=== PATIENT | female | born 1970 | race Caucasian/White ===

== ENCOUNTER 2017-09-29 07:13 | Day surgery (SDC) | payer OTHER ==
[2017-09-29] MEDS ORDERED: CYANOCOBALAMIN (VITAMIN B-12) 1000 MCG/1 ML VIAL IM ONE (10:00)
[2017-09-29] MEDS ORDERED: IRON SUCROSE INJECTION 200 MG in SODIUM CHLORIDE 100 ML IVPB ONE (10:00)
[2017-09-29 16:36] VITALS: TEMP 98.1
[2017-09-29 17:34] VITALS: BP 135/90; PULSE 85
== END 2017-09-29 17:00 | disposition home or self-care (01) ==
LOC: JONCNONCHE 07:13 → J7W 16:08 → JONCNONCHE 17:00
PROVIDERS: ATTEND Internal Medicine Hematology & Oncology
PROC: 3E033GC Introduction of Other Therapeutic Substance into Peripheral Vein, Percutaneous Approach (ICD-10-PCS; principal; 2017-09-29)
PROC: 3E013GC Introduction of Other Therapeutic Substance into Subcutaneous Tissue, Percutaneous Approach (ICD-10-PCS; 2017-09-29)
DX: D50.9 Iron deficiency anemia, unspecified (principal); K90.9 Intestinal malabsorption, unspecified; E53.8 Deficiency of other specified B group vitamins
CPT/HCPCS: 96365; 96372; 96417; J1756

== ENCOUNTER 2017-10-13 07:30 | Day surgery (SDC) | payer OTHER ==
[2017-10-13] MEDS ORDERED: IRON SUCROSE INJECTION 200 MG in SODIUM CHLORIDE 100 ML IVPB ONE (13:00)
[2017-10-13] MEDS ORDERED: CYANOCOBALAMIN (VITAMIN B-12) 1000 MCG/1 ML VIAL IM ONE (13:00)
[2017-10-13 16:38] VITALS: TEMP 98.8
[2017-10-13 17:46] VITALS: BP 123/72; PULSE 68
== END 2017-10-13 17:15 | disposition home or self-care (01) ==
LOC: JONCNONCHE 07:30 → J7W 16:07 → JONCNONCHE 17:15
PROVIDERS: ATTEND Internal Medicine Hematology & Oncology
PROC: 3E033GC Introduction of Other Therapeutic Substance into Peripheral Vein, Percutaneous Approach (ICD-10-PCS; principal; 2017-10-13)
PROC: 3E013GC Introduction of Other Therapeutic Substance into Subcutaneous Tissue, Percutaneous Approach (ICD-10-PCS; 2017-10-13)
DX: D50.9 Iron deficiency anemia, unspecified (principal)
CPT/HCPCS: 96365; 96372; 96417; J1756

== ENCOUNTER 2017-10-21 07:32 | Day surgery (SDC) | payer OTHER ==
[2017-10-21] MEDS ORDERED: IRON SUCROSE INJECTION 200 MG in SODIUM CHLORIDE 100 ML IVPB ONE (13:00)
[2017-10-21 18:30] VITALS: BP 116/67; PULSE 70; TEMP 98.3
== END 2017-10-21 18:25 | disposition home or self-care (01) ==
LOC: JONCNONCHE 07:32 → J7W 16:01 → JONCNONCHE 18:25
PROVIDERS: ATTEND Internal Medicine Hematology & Oncology
PROC: 3E033GC Introduction of Other Therapeutic Substance into Peripheral Vein, Percutaneous Approach (ICD-10-PCS; principal; 2017-10-21)
DX: D50.9 Iron deficiency anemia, unspecified (principal)
CPT/HCPCS: 96365; 96417; J1756

== ENCOUNTER 2017-10-30 14:00 | Day surgery (SDC) | payer OTHER ==
[2017-10-30] MEDS ORDERED: IRON SUCROSE INJECTION 200 MG in SODIUM CHLORIDE 100 ML IVPB ONE (15:30)
[2017-10-30 16:19] VITALS: TEMP 97.9
[2017-10-30 17:25] VITALS: BP 124/75; PULSE 66
== END 2017-10-30 16:55 | disposition home or self-care (01) ==
LOC: JONCNONCHE 14:00 → J7W 14:00 → JONCNONCHE 16:55
PROVIDERS: ATTEND Internal Medicine Hematology & Oncology
PROC: 3E033GC Introduction of Other Therapeutic Substance into Peripheral Vein, Percutaneous Approach (ICD-10-PCS; principal; 2017-10-30)
DX: D50.9 Iron deficiency anemia, unspecified (principal)
CPT/HCPCS: 96365; J1756

== ENCOUNTER 2019-01-20 05:35 | Day surgery (SDC) | payer OTHER ==
[2019-01-20] MEDS ORDERED: IRON SUCROSE INJECTION 200 MG in SODIUM CHLORIDE 100 ML IVPB ONE (09:00)
[2019-01-20 15:54] VITALS: BP 132/64; PULSE 80; TEMP 97.9
== END 2019-01-20 09:20 | disposition home or self-care (01) ==
LOC: JONCCHEMO 05:35 → J7W 08:33 → JONCCHEMO 09:20
PROVIDERS: ATTEND Internal Medicine Hematology & Oncology
PROC: 3E033GC Introduction of Other Therapeutic Substance into Peripheral Vein, Percutaneous Approach (ICD-10-PCS; principal; 2019-01-20)
DX: D50.9 Iron deficiency anemia, unspecified (principal)
CPT/HCPCS: 96365; J1756

== ENCOUNTER 2019-01-27 06:25 | Day surgery (SDC) | payer OTHER ==
[2019-01-27 09:44] VITALS: TEMP 97.8
[2019-01-27 09:45] VITALS: BP 105/73; PULSE 67
[2019-01-27] MEDS ORDERED: IRON SUCROSE INJECTION 200 MG in SODIUM CHLORIDE 100 ML IVPB ONE (10:00)
== END 2019-01-27 09:00 | disposition home or self-care (01) ==
LOC: JONCCHEMO 06:25 → J7W 08:10 → JONCCHEMO 09:00
PROVIDERS: ATTEND Internal Medicine Hematology & Oncology
PROC: 3E033GC Introduction of Other Therapeutic Substance into Peripheral Vein, Percutaneous Approach (ICD-10-PCS; principal; 2019-01-27)
DX: D50.9 Iron deficiency anemia, unspecified (principal)
CPT/HCPCS: 96365; J1756

== ENCOUNTER 2019-02-03 07:18 | Day surgery (SDC) | payer OTHER ==
[2019-02-03] MEDS ORDERED: IRON SUCROSE INJECTION 200 MG in SODIUM CHLORIDE 100 ML IVPB ONE (10:00)
[2019-02-03 14:16] VITALS: BP 120/64; PULSE 70; TEMP 97.5
== END 2019-02-03 09:30 | disposition home or self-care (01) ==
LOC: JONCNONCHE 07:18 → J7W 08:42 → JONCNONCHE 09:30
PROVIDERS: ATTEND Internal Medicine Hematology & Oncology
PROC: 3E033GC Introduction of Other Therapeutic Substance into Peripheral Vein, Percutaneous Approach (ICD-10-PCS; principal; 2019-02-03)
DX: D50.9 Iron deficiency anemia, unspecified (principal)
CPT/HCPCS: 96365; J1756

== ENCOUNTER 2019-02-10 07:03 | Day surgery (SDC) | payer OTHER ==
[2019-02-10] MEDS ORDERED: IRON SUCROSE INJECTION 200 MG in SODIUM CHLORIDE 100 ML IVPB ONE (09:00)
[2019-02-10 10:11] VITALS: TEMP 98
[2019-02-10 10:25] VITALS: BP 92/59; PULSE 66
== END 2019-02-10 09:05 | disposition home or self-care (01) ==
LOC: JONCNONCHE 07:03 → JONCCHEMO 07:03 → J7W 08:08 → JONCNONCHE 09:05
PROVIDERS: ATTEND Internal Medicine Hematology & Oncology
PROC: 3E033GC Introduction of Other Therapeutic Substance into Peripheral Vein, Percutaneous Approach (ICD-10-PCS; principal; 2019-02-10)
DX: D50.9 Iron deficiency anemia, unspecified (principal)
CPT/HCPCS: 96365; J1756

== ENCOUNTER 2019-08-01 13:31 | Emergency (ER) | payer OTHER ==
[2019-08-01 13:51] VITALS: BP 130/86; PULSE 65; TEMP 97.8; BMI 40.3
[2019-08-01] MEDS ORDERED: LIDOCAINE 5% TOPICAL PATCH TP ONE (14:20)
--- NOTE | 2019-08-01 14:25 | PDOC ---
Documentation entered by Deisi Rodriges SCRIBE, acting as scribe for Ligia Jarrett MD. Ligia Jarrett MD: This documentation has been prepared by the Antelmo montes Xhesika, SCRIBE, under my direction and personally reviewed by me in its entirety. I confirm that the documentation accurately reflects all work, treatment, procedures, and medical decision making performed by me. History of Present Illness - General Chief Complaint: Back Pain Stated Complaint: BACK PAIN Time Seen by Provider: 08/01/19 13:56 History Source: Patient Exam Limitations: No Limitations - History of Present Illness Initial Comments: 08/01/19 14:31 The patient is a 48 year old female with a significant past medical history of sciatica and seizure disorder who presents to the ED with lower and mid back pain, b/l shoulder soreness and neck soreness after straining to help a bariatric patient on the weight scale. Patient is an employee (RN) here at [employer], she was trying to weigh a bariatric patient that was going into surgery, they got her to stand, however,that patient eased down to the floor. Pt notes she fell over her and hit her back against the scale. Patient denies any other trauma, hitting her head or LOC. Patient notes her pain/ soreness is alleviated by standing and being mobile and worsened when sitting still. Patient notes she took 800mg Ibuprofen with mild relief of symptoms. Denies chest pain, SOB, palpitation, dizziness, weakness, N, V, abdominal pain, bladder and bowel problems, leg tingling/swelling Allergies: codeine Past Medical History: as documented in EMR/HPI Social history: Lives with family. No tobacco, ETOH or drug use. Surgical history: Cholecystectomy, Gastric bypass Meds: as documented in EMR Family history: noncontributory 08/01/19 15:11 Past History - Past Medical History Allergies/Adverse Reactions: Allergies Allergy/AdvReac Type Severity Reaction Status Date / Time codeine AdvReac Severe Difficulty Verified 08/01/19 13:32 Breathing Home Medications: Ambulatory Orders Carbamazepine 600 mg PO BID 08/01/19 Cyclobenzaprine HCl [Flexeril 10 mg] 10 mg PO TID PRN #12 tablet 08/01/19 Ibuprofen [Motrin -] 800 mg PO ONCE PRN 08/01/19 Topiramate 50 mg PO BID 08/01/19 COPD: No CHF: No Seizures: Yes Other medical history: MIGRAINE - Surgical History Cholecystectomy: Yes - Suicide/Smoking/Psychosocial Hx Smoking History: Never smoked Have you smoked in the past 12 months: No Information on smoking cessation initiated: No Review of Systems - Review of Systems Able to Perform ROS?: Yes Comments:: 08/01/19 14:32 Review of Systems (Shortened) - MSK/Level 4s Constitutional: no fevers or chills. Abdomen: no abdominal pain Genitorurinary: no urinary retention or incontinence, no dysuria, urgency or frequency. no hematuria MUSCULOSKELETAL: No joint pain and swelling. No arthralgias. (+) b/l shoulder soreness. (+) neck soreness. Back: (+)back pain SKIN: no redness or skin changes, no discharge, no rash. No wounds. Hematologic: no easy bruising/bleeding. NEUROLOGIC: No weakness, numbness or tingling. Allergic/Immunologic: codeine allergy All other systems reviewed and negative, or as documented in HPI. 08/01/19 15:13 *Physical Exam - Vital Signs Last Vital Signs Temp Pulse Resp BP Pulse Ox 97.8 F 65 20 130/86 97 08/01/19 13:31 08/01/19 13:31 08/01/19 13:31 08/01/19 13:31 08/01/19 13:31 - Physical Exam Comments: 08/01/19 14:32 General: NAD, well appearing, GCS 15 Abdomen: soft, no tenderness, nondistended Vascular: 2+ DP pulses symmetric and equal. Back: no midline tenderness, no stepoffs, FROM. (+) paravertebral lower lumbar tenderness. (+) upper thoracic tenderness.(+) b/l trapezius tenderness and lateral cervical tenderness. MSK: soft compartments, Cap refill <2 sec. Proximal and distal strength 5/5, saddle stitcher strength 5/5 - equal and symmetric. Plantar flexion and dorsiflexion 5/5. FROM. Sensation grossly intact to light touch. Neuro: alert, no focal neurologic deficits, ambulatory, gait stable Skin: color normal color, warm and well perfused. Cap refill <2 sec. no ecchymosis, no wounds. 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 ambulatory here, feels well and comfortable with plan supportive care,a void heavy lifting or further trauma pmd and ortho referral, return precautions pt made aware of impression and plan, discharge stable condition 08/01/19 15:14 *DC/Admit/Observation/Transfer Diagnosis at time of Disposition: Neck muscle strain Qualifiers: Encounter type: initial encounter Qualified Code(s): S16.1XXA - Strain of muscle, fascia and tendon at neck level, initial encounter Lumbar back sprain Qualifiers: Encounter type: initial encounter Qualified Code(s): S33.5XXA - Sprain of ligaments of lumbar spine, initial encounter - Discharge Dispostion Disposition: HOME Condition at time of disposition: Improved Decision to Admit order: No - Prescriptions Prescriptions: Cyclobenzaprine HCl [Flexeril 10 mg] 10 mg PO TID PRN #12 tablet PRN Reason: Muscle Spasms - Referrals Referrals: [facility] [place] [Provider Group] [facility] [Provider Group] Bassem Goodwin DO [Staff Physician] - Luis Lindsey DO [Staff Physician] - - Patient Instructions Printed Discharge Instructions: DI for Low Back Pain, DI for Cervical Muscle Strain, DI for Thoracic Back Pain, Exercise May Reduce Risk of Low Back Pain Additional Instructions: you most likely have musculoskeletal strain of your neck and back muscles. avoid heavy lifting or strenuous activity to minimize further injury flexeril is a muscle relaxant, take three times a day as needed may cause sleepiness, do not drive or operate machinery or take with alcohol. topical lidoderm patch to the area affected, 12 hours on and 12 hours off.. May take ibuprofen 400-600mg and/or tylenol 650 to 975 mg every 6 hours as needed for mild to moderate pain, available over the counter. This does not require narcotics, as it will precipitate injuries and falls. continue with range of motion exercises, as this will facilitate the healing process; avoid being bed bound and immobile. Follow up with primary doctor/specialist services provided as well. orthopedics referrals given. This should heal over the next 3-5 days. - Post Discharge Activity Forms/Work/School Notes: Back to Work
[2019-08-01] MEDS ORDERED: LIDOCAINE 5% TOPICAL PATCH ONE (14:31)
== END 2019-08-01 14:40 | disposition home or self-care (01) ==
LOC: FER 13:31
DX: S16.1XXA Strain of muscle, fascia and tendon at neck level, initial encounter (principal); S33.5XXA Sprain of ligaments of lumbar spine, initial encounter; W22.8XXA Striking against or struck by other objects, initial encounter; Y93.89 Activity, other specified; Y92.238 Other place in hospital as the place of occurrence of the external cause; Y99.0 Civilian activity done for income or pay; Z88.6 Allergy status to analgesic agent; M54.30 Sciatica, unspecified side; G40.909 Epilepsy, unspecified, not intractable, without status epilepticus
CPT/HCPCS: 99282-25

== ENCOUNTER 2021-10-25 06:52 | Emergency (ER) | payer SELFPAY ==
[2021-10-25 07:02] VITALS: BP 124/78; PULSE 74; TEMP 98.6; BMI 35.7
[2021-10-25] MEDS ORDERED: IBUPROFEN 400 MG TABLET (FP) PO ONE ×2 (07:33→07:39)
== END 2021-10-25 07:51 | disposition home or self-care (01) ==
LOC: FER 06:52
DX: J06.9 Acute upper respiratory infection, unspecified (principal)
CPT/HCPCS: 99283-25

== ENCOUNTER 2022-01-17 08:21 | Day surgery (SDC) | payer BC ==
[2022-01-17] MEDS ORDERED: FERRIC CARBOXYMALTOSE 750 MG in SODIUM CHLORIDE 250 ML IVPB ONE (09:00)
[2022-01-17 16:13] VITALS: BP 115/77; TEMP 98.3
[2022-01-17 17:16] VITALS: PULSE 68
== END 2022-01-17 11:15 | disposition home or self-care (01) ==
LOC: JONCNONCHE 08:21
PROVIDERS: ATTEND Internal Medicine Hematology & Oncology
PROC: 3E033GC Introduction of Other Therapeutic Substance into Peripheral Vein, Percutaneous Approach (ICD-10-PCS; principal; 2022-01-17)
DX: D50.9 Iron deficiency anemia, unspecified (principal)
CPT/HCPCS: 84703; 96365; J1439

== ENCOUNTER 2022-01-24 07:56 | Day surgery (SDC) | payer BC ==
[2022-01-24] MEDS ORDERED: FERRIC CARBOXYMALTOSE 750 MG in SODIUM CHLORIDE 250 ML IVPB ONE (09:00)
[2022-01-24 15:33] VITALS: PULSE 66; TEMP 98.3
[2022-01-24 15:35] VITALS: BP 113/70
== END 2022-01-24 14:30 | disposition home or self-care (01) ==
LOC: JONCNONCHE 07:56
PROVIDERS: ATTEND Internal Medicine Hematology & Oncology
PROC: 3E033GC Introduction of Other Therapeutic Substance into Peripheral Vein, Percutaneous Approach (ICD-10-PCS; principal; 2022-01-24)
DX: D50.9 Iron deficiency anemia, unspecified (principal)
CPT/HCPCS: 84703; 96365; J1439

== ENCOUNTER 2023-03-09 09:34 | Emergency (ER) | payer OTHER, BC ==
[2023-03-09] MEDS ORDERED: ACETAMINOPHEN 325 MG TABLET (FP) PO ONE (09:51)
[2023-03-09] MEDS ORDERED: CYCLOBENZAPRINE HCL 10 MG TABLET (FP) PO ONE (09:51)
[2023-03-09] MEDS ORDERED: KETOROLAC TROMETHAMINE 30 MG/1 ML VIAL IM ONE (09:51)
[2023-03-09 09:56] VITALS: BP 117/71; PULSE 70; RESP 16; TEMP 98; BMI 32.6
[2023-03-09] MEDS ORDERED: CYCLOBENZAPRINE HCL 5 MG TABLET ONE (09:59)
[2023-03-09] MEDS ORDERED: KETOROLAC TROMETHAMINE 30 MG/1 ML VIAL ONE (09:59)
[2023-03-09] MEDS ORDERED: ACETAMINOPHEN 500 MG TABLET (FP) ONE (09:59)
== END 2023-03-09 11:40 | disposition home or self-care (01) ==
LOC: FER 09:34
PROC: 3E0233Z Introduction of Anti-inflammatory into Muscle, Percutaneous Approach (ICD-10-PCS; principal; 2023-03-09)
DX: M54.50 Low back pain, unspecified (principal); S39.012A Strain of muscle, fascia and tendon of lower back, initial encounter; X50.0XXA Overexertion from strenuous movement or load, initial encounter
CPT/HCPCS: 99284-25

== ENCOUNTER 2024-01-04 12:32 | Emergency (ER) | payer OTHER, BC ==
[2024-01-04 12:44] VITALS: BP 135/80; PULSE 71; RESP 18; TEMP 98.7; BMI 31.1
== END 2024-01-04 13:55 | disposition home or self-care (01) ==
LOC: FER 12:32
DX: M79.642 Pain in left hand (principal); S60.222A Contusion of left hand, initial encounter; W23.1XXA Caught, crushed, jammed, or pinched between stationary objects, initial encounter
CPT/HCPCS: 73130-TC-LT-FY; 99283-25

== ENCOUNTER 2024-08-01 08:41 | Emergency (ER) | payer BC ==
[2024-08-01 08:54] VITALS: BP 118/79; PULSE 66; RESP 16; TEMP 98.2; BMI 27.6
[2024-08-01] MEDS: SODIUM CHLORIDE 0.9% 500 ML INFUS.BAG IV ONE (09:25)
[2024-08-01 10:13] LABS: HEMATOCRIT 40.3 % (32.4-45.2); HEMOGLOBIN 12.8 G/dL (10.7-15.3); MCH 27.7 pg (25.7-33.7); MCHC 31.7 g/dl (32.0-36.0); MEAN CELL VOLUME 87.5 fl (80-96); MEAN PLT VOLUME 9.2 fl (7.5-11.1); PLATELET COUNT 246.1 10^3/uL (134-434); RDW 15.3 % (11.6-15.6); WHITE BLOOD COUNT 7.9 10^3/uL (4.0-10.8)
[2024-08-01 10:26] LABS: ALBUMIN 4.2 g/dl (3.4-5.0); BILIRUBIN,TOTAL 0.6 mg/dl (0.2-1); CALCIUM 9.2 mg/dl (8.5-10.1); CREATININE 0.8 mg/dl (0.6-1.3); TOT PROT 6.7 g/dl (6.4-8.2)
[2024-08-01 11:57] LABS: PLATELET ESTIMATE ADEQUATE
== END 2024-08-01 11:19 | disposition home or self-care (01) ==
LOC: FER 08:41
DX: R10.13 Epigastric pain (principal); K85.90 Acute pancreatitis without necrosis or infection, unspecified
CPT/HCPCS: 36415; 80053; 83690; 84484; 85027; 93005; 99284-25